=== PATIENT | male | born 1960 | race Caucasian/White ===

== ENCOUNTER → 2018-02-04 | Outpatient (CLI) | payer BC, OTHER ==
[~2018-02-04] MED LIST: CEP500 PO; KET10 PO; LOR5 PO; MULT1CAP59 PO; NO RTN MEDS; ONDA4TAB PO; OSTEOBIFLEX; OXYC-865 PO; OXYC1TAB54 PO; TAMS0.4C25 PO
--- NOTE | 2018-02-05 10:52 | RADIOLOGY IMAGING REPORT ---
FACILITY: [facility] PATIENT NAME: GLENN BLACKBURN : [id number] MR: [id number] V: [id number] EXAM DATE: [id number] ORDERING PHYSICIAN: BARBARA BALDERAS TECHNOLOGIST: Cheng Chopra EXAMINATION:TWO-DIMENSIONAL ECHOCARDIOGRAPH REASON:PVC'S/ABN EKG 2D Measurements (normal values in centimeters) LV endLV endRV endVent.LV PostAorticLeftPercent DiastolicSystolicDiastolicSeptumWallRootAtriumShortening (3.5-5.7)(0.9-2.6)(0.6-1.1)(0.6-1.1)(2.0-3.7)(1.9-4.0)(25-35%) [id number]% STROKE VOLUME: 107ml ESTIMATED EJECTION FRACTION 74% on average PARASTERNAL LONG AXIS: Overall left ventricular systolic function appears to be within normal ranges. The aortic valve & mitral valve both appear to open normally. Right ventricle is mildly enlarged. The other chamber sizes appear to be normal. Color examination of the valves reveals a trace of mitral insufficiency. Mild mitral annular calcification is noted. Trace of tricuspid insufficiency is also noted. PARASTERNAL SHORT AXIS: Overall left ventricular function again appears to be normal. No wall motion abnormalities are noted. Aortic valve is trileaflet in configuration & appears to open normally. Color examination of the pulmonic valve reveals a trace of pulmonic insufficiency. Color examination of the tricuspid valve reveals a trace of tricuspid insufficiency. The tricuspid regurgitation Vmax was measured at 1.49m/sec. APICAL FOUR AND TWO CHAMBER: Normal left ventricular ejection fraction. No wall motion abnormalities are noted. The right ventricle appears to contract normally. The TAPSE was measured at 2.5 which is within normal ranges. Trace of mitral & tricuspid insufficiency was noted. Aortic valve area & mitral valve area both measure within normal ranges at 3.2 & 5.1cm2 respectively. The left atrial & right atrial volumes are measures within normal ranges at 12 & 9.5ml/m2. SUBCOSTAL VIEW: No pericardial effusion was noted. No atrioseptal or ventriculoseptal defects were appreciated. Definity contrast was used. Doppler examination of the mitral valve in diastole does reveal a variable pattern of E wave & A wave velocities. The Valsalva maneuver did show reversal to where the A wave is always greater than the E wave. Medial & lateral E prime velocities are decreased suggesting decreased diastolic function. OVERALL IMPRESSION: 1. Normal left ventricular ejection fraction average about 74%. Grade 1-2/3 decrease in diastolic function is evidenced by the variable pattern of the mitral valve in diastole revealing a variable pattern with the E wave & A wave being dominant. With Valsalva there is reversal suggesting decreased diastolic function. 2. Right ventricle is enlarged with the other chamber sizes being normal. 3. A trileaflet aortic valve with no abnormalities. 4. There is a trace of mitral & tricuspid insufficiency with estimated right ventricular systolic pressures within normal ranges at 12mm Hg but the view of the tricuspid regurgitation Vmax was less than optimal. 5. Patient appears to be in sinus rhythm in this echocardiograph. No arrhythmias were noted. Dictated by: Larissa Becker M.D. on 02/04/2018 at 20:50 Transcribed by: TORO on 02/05/2018 at 10:43 Approved by: Larissa Becker M.D. on 02/05/2018 at 10:51 [facility]
== END ==
LOC: RAD 02:57
PROVIDERS: ATTEND Internal Medicine Cardiovascular Disease
DX: I50.30 Unspecified diastolic (congestive) heart failure (principal); I51.7 Cardiomegaly; I34.0 Nonrheumatic mitral (valve) insufficiency; I07.1 Rheumatic tricuspid insufficiency
CPT/HCPCS: C8929; Q9957

== ENCOUNTER → 2018-02-06 | Outpatient (CLI) | payer BC ==
[2018-02-06 07:23] LABS: LDL CHOLESTEROL 113 mg/dl
== END ==
LOC: LAB 06:49
PROVIDERS: ATTEND Internal Medicine Cardiovascular Disease
DX: R94.31 Abnormal electrocardiogram [ECG] [EKG] (principal); I49.3 Ventricular premature depolarization; E78.00 Pure hypercholesterolemia, unspecified
CPT/HCPCS: 36415; 82040; 82247; 82310; 82374; 82435; 82465; 82565; 82947; 83718; 84075; 84132; 84155; 84295; 84450; 84460; 84478; 84520; 85027